=== PATIENT | female | born 1970 | race Caucasian/White ===

== ENCOUNTER 2020-05-07 10:15 | Emergency (ER) | payer OTHER ==
--- NOTE | 2020-05-07 13:36 | RAD ---
XR Knee Rt 4 View STANDARD HISTORY: Injury, right knee pain and concern for foreign body FINDINGS: No fracture or dislocation is identified. No radiopaque foreign body is identified.
--- NOTE | 2020-05-07 13:41 | RAD ---
Right hand 3 views HISTORY: Right hand injury. Laceration with glass. FINDINGS: Joint spaces are preserved. No acute fracture, dislocation, or aggressive osseous erosions. No radiopaque foreign bodies are apparent. Ulnar negative variant is noted. IMPRESSION : No acute osseous abnormalities or radiopaque foreign bodies evident. (Please note that glass is often radiolucent)
[2020-05-07] MEDS ORDERED: Boostrix 0.5 ML (Tdap) VIAL ONE (14:21)
== END 2020-05-07 14:01 | disposition home or self-care (01) ==
LOC: ERS 10:15
DX: S80.211A Abrasion, right knee, initial encounter (principal); S60.511A Abrasion of right hand, initial encounter; Z79.899 Other long term (current) drug therapy; Z85.72 Personal history of non-Hodgkin lymphomas; V89.2XXA Person injured in unspecified motor-vehicle accident, traffic, initial encounter
CPT/HCPCS: 90471; 90715